=== PATIENT | male | born 1980 | race Caucasian/White ===

== ENCOUNTER 2018-07-26 23:11 | Emergency (ER) | payer OTHER, SELFPAY ==
[2018-07-26 23:21] VITALS: BP 144/96; PULSE 65; RESP 14; TEMP 36.4; O2SAT 98; BMI 35.5
--- NOTE | 2018-07-26 23:42 | DI.CT.S_ITS ---
PROCEDURE: CT ABDOMEN PELVIS W CON INDICATIONS: rlq pain TECHNIQUE: After the administration of oral and intravenous contrast, 5 mm thick sections acquired from the diaphragms to the symphysis. 5 mm thick coronal and sagittal reformats were performed. For radiation dose reduction, the following was used: automated exposure control, adjustment of mA and/or kV according to patient size. COMPARISON: None. FINDINGS: Image quality: Excellent. ABDOMEN: Lung bases: Lung bases are clear. Heart size is normal. Solid organs: Liver is normal in size and enhancement. Gallbladder is contracted, but within normal limits. Biliary system is non-dilated. Pancreas enhances normally. Spleen is normal in size and enhancement. No adrenal nodules. Kidneys are normal in size and enhancement, without hydronephrosis. 2 mm nonobstructing right renal stone. Peritoneum and bowel: Stomach, small bowel, and colon loops are normal in caliber and wall thickness. Scattered colonic diverticuli without evidence of diverticulitis. No free fluid or air. The appendix is normal. Nodes and vessels: No retroperitoneal or mesenteric adenopathy. Aorta and inferior vena cava are normal in caliber. Miscellaneous: No ventral hernias. PELVIS: Genitourinary: Bladder wall thickness is normal. Miscellaneous: No inguinal adenopathy. Small bilateral fat containing inguinal hernias. Bones: No suspicious bony lesions. No vertebral body compression fractures. Spine degenerative disc disease and facet arthropathy. IMPRESSION: 1. No evidence of appendicitis. 2. Nonobstructing right renal stone. 3. No free fluid or free air. 4. No dilated loops of bowel 5. Colonic diverticulosis without evidence of diverticulitis. Dictated by: Rosanne Grove MD, PhD on 07/27/2018 at 8:13 Approved by: Rosanne Grove MD, PhD on 07/27/2018 at 8:16
[2018-07-26 23:43] LABS: Add Manual Diff / Slide Review YES; Hematocrit 44.1 % (41-53); Hemoglobin 15.8 g/dL (13.5-17.5); Mean Corpuscular HGB Conc 35.8 % (30-36); Mean Corpuscular Volume 89.4 fL (80-100); Platelet Count 156 X10^3/uL (150-400); Red Blood Cell Count 4.93 X10^6/uL (4.5-5.9); Red Cell Distribution Width 12.8 % (11.6-14.8); White Blood Cell Count 7.8 X10^3/uL (4.5-11.0)
[2018-07-26 23:45] LABS: Prothrombin Time 11.3 SECONDS (10.1-12.7)
--- NOTE | 2018-07-26 23:46 | ED.ABDPAIN ---
HPI - Abdominal Pain General Chief Complaint: Abdominal Pain Stated Complaint: rlq abd pain x7 days Time Seen by Provider: 07/26/18 23:30 Source: patient, family and old records reviewed Limitations: no limitations History of Present Illness HPI narrative: Patient is a 38-year-old male presenting with worsening right lower quadrant pain. He was seen evaluated [facility] twice. He had actually started with nausea vomiting diarrhea like symptoms. Other people had the same symptoms initially he was given anti nausea medication and pain medication discharge home. Return to would be again where he had blood work and a CT. The appendix was not identified on this CT there was punctate nonobstructing right renal calculus. Patient has continued to have pain it remains in his right lower quadrant radiating to his right testicle. No flank pain no blood in his urine. He did feel nauseated prior to arrival and took a Zofran. Related Data Home Medications Medication Instructions Recorded Confirmed albuterol sulfate [Ventolin HFA] 1 puff INH #0 ea 02/13/16 fluticasone propion-salmeterol 1 puff BID #0 02/13/16 [Advair Diskus] loratadine [Claritin Liqui-Gel] 10 mg PO QDAYP PRN #0 sgl 02/13/16 montelukast [Singulair] 10 mg PO QDAY #0 02/13/16 Allergies Allergy/AdvReac Type Severity Reaction Status Date / Time No Known Drug Allergies Allergy Verified 07/26/18 23:20 Review of Systems Review of Systems GENERAL: Denies chills, fatigue, malaise, fever, sweats, travel HEENT: Denies sinus pain, ear pain, sore throat, difficulty swallowing, neck pain RESPIRATORY: Denies dyspnea, cough, wheezing, hemoptysis, sputum. CARDIOVASCULAR: Denies chest pain, palpitations, orthopnea, edema GASTROINTESTINAL see HPI : Denies any testicular injury or trauma note is ocular pain or swelling no blood in urine MUSCULOSKELETAL: Denies weakness, joint pain, or bony pain SKIN: No rash, no erythema, no pruritus NEUROLOGIC: Denies weakness, dizziness, headache, numbness, change in speech, confusion PSYCHIATRIC: No concerning psychosocial issues. 12 point review of systems is negative except for those stated above and HPI [facility] Medical History Patient denies significant medical history (Acute) Social History Smoking Status: Unknown if ever smoked Social History Smoking Status: Unknown if ever smoked Exam Initial Vital Signs Initial Vital Signs: Vital Signs Temperature 97.6 F 07/26/18 23:21 Pulse Rate 65 07/26/18 23:21 Respiratory Rate 14 07/26/18 23:21 Blood Pressure 144/96 H 07/26/18 23:21 Pulse Oximetry 98 07/26/18 23:21 GENERAL: Alert young male appears in pain HEENT: Head atraumatic,EOMI, pupils reactive, face symmetric CARDIOVASCULAR: Regular rate and rhythm without murmurs, rubs or gallops. RESPIRATORY: Breath sounds equal bilaterally, no wheezes rales or rhonchi. ABDOMEN: Soft, tender right lower quadrant no guarding no rebound no right upper quadrant : No testicular swelling no pain no erythema and no hernia present bilaterally in room for exam EXTREMITIES: Normal range of motion, no clubbing or edema. Neurovascularly intact NEUROLOGICAL: Alert and oriented x4.Normal gait and speech. Cranial nerves II through XII grossly intact. SKIN: Warm, dry, no laceration, no petechiae, no rashes or lesions. Course Orders Ordered: ED Orders 07/26/18 23:25 Complete Blood Count AUTO DIFF Stat Comprehensive Metabolic Panel Stat Lipase Stat Partial Thromboplastin Time Stat Prothrombin Time INR Stat 07/26/18 23:42 CT abdomen pelvis w con Stat Discontinued Medications Sodium Chloride (Normal Saline 0.9%) 1,000 mls @ 1,000 mls/hr IV BOLUS ONE Stop: 07/27/18 00:41 Last Infusion: 07/27/18 00:50 Dose: 0 mls/hr Admin: 07/26/18 23:47 Dose: 1,000 mls/hr Ketorolac Tromethamine (Toradol) 30 mg IV NOW ONE Stop: 07/26/18 23:43 Last Admin: 07/26/18 23:47 Dose: 30 mg Consultations Consultation #1: Dr. victoria, surgery consulted in regards to patient's symptoms and CT results. At this time no indication for surgery. Likely kidney stone. Recommend supportive care. Time: 02:10 Vital Signs - 8 hr 07/26/18 23:21 07/27/18 02:06 Temperature 97.6 F Pulse Rate 65 60 Respiratory Rate 14 18 Blood Pressure 144/96 H Blood Pressure [Left Arm] 125/76 Pulse Oximetry 98 99 MDM - Abdominal Pain Lab Data Attestation: I reviewed the patient's lab results. Result diagrams: 07/26/18 23:25 07/26/18 23:25 Lab Results 07/26/18 07/26/18 07/26/18 Range/Units 23:25 23:25 23:25 WBC 7.8 (4.5-11.0) X10^3/uL RBC 4.93 (4.5-5.9) X10^6/uL Hgb 15.8 (13.5-17.5) g/dL Hct 44.1 (41-53) % MCV 89.4 (80-100) fL MCH 32.0 (26-34) PG MCHC 35.8 (30-36) % RDW 12.8 (11.6-14.8) % Plt Count 156 (150-400) X10^3/uL Neut % (Auto) Not Reportable Lymph % (Auto) Not Reportable [place] % (Auto) Not Reportable Eos % (Auto) Not Reportable Baso % (Auto) Not Reportable Lymph # (Auto) Not Reportable [place] # (Auto) Not Reportable Baso # (Auto) Not Reportable Seg Neutrophils % 37.0 L (38-70) % Lymphocytes % (Manual) 23.0 L (25-45) % Atypical Lymphs % 15.0 H ( - 0) % Monocytes % (Manual) 4.0 (2-11) % Eosinophils % (Manual) 20.0 H (2-4) % Basophils % (Manual) 1.0 (0-1) % RBC Morphology Normal morphology PT 11.3 (10.1-12.7) SECONDS INR 1.0 (0.9-1.3) APTT 30 (26.4-36.2) SECONDS Sodium 140 (137-145) mmol/L Potassium 4.0 (3.4-5.1) mmol/L Chloride 104 (98-107) mmol/L Carbon Dioxide 26 (22-32) mmol/L BUN 18 (9-20) mg/dL Creatinine 1.30 H (0.66-1.25) mg/dL Estimated GFR > 60.0 (>60) mL/min BUN/Creatinine Ratio 13.8 (6-22) Glucose 89 (70-100) mg/dL Calcium 10.0 (8.4-10.2) mg/dL Total Bilirubin 0.7 (0.2-1.3) mg/dL AST 32 (17-59) IU/L ALT 49 (21-72) IU/L Alkaline Phosphatase 34 L (38-126) U/L Total Protein 7.4 (6.3-8.2) g/dL Albumin 4.8 (3.5-5.0) g/dL Globulin 2.6 (1.7-4.1) g/dL Albumin/Globulin Ratio 1.8 (1.0-2.8) Lipase 176 (23-300) U/L Point of care testing: Urine Dip Bedside Urine Glucose Negative Bedside Urine Bilirubin - Negative Bedside Urine Ketone - Negative Urine Specific [place] 1.015 Bedside Urine Occult Blood - Negative Bedside Urine pH 5.0 Bedside Urine Protein +/- 15 Bedside Urine Urobilinogen - Negative Bedside Urine Nitrite - Negative Bedside Urine Leukocytes - Negative Esterase Imaging Data CT scan - abdomen: 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 Appendix is not definitely identified cecum is somewhat high in the right abdomen. Please correlate with surgical history. Small nonobstructing right kidney stone noted without hydronephrosis. Pancreas adrenal glands and left kidney within normal limits. [facility] Narrative Medical decision making narrative: The patient is tender in his right lower quadrant. Kidney stone is noted on CT from this evening and the 1 from 2 days ago at [facility]. It is punctate and small not even measured on the CT. He has pain radiating from his lower abdomen into his testicle. Testicle exam is benign. At this time I do not believe him to need any further imaging of his testicles I do not suspect torsion. He has no hematuria or flank pain. he states every time he eats or drinks anything he gets extremely nauseous. According to records he does have a history of acid reflux is on Carafate and omeprazole. With his history of a gastroenteritis week or 2 ago and continued upset stomach this is likely contributing to his pain and nausea. This time Toradol has helped him immensely he is overall feeling better. He has no fever no leukocytosis. This patient is not a surgical candidate at this time. I believe his pain to be caused from a small kidney stone and ongoing gastroenteritis. I discussed all findings with the patient and spouse, Education has been performed regarding treatment plan, diagnosis, warning signs and symptoms and all concerns have been addressed. Verbally agree with and understood all of the above. Discharge Plan Departure Patient Disposition: Home Clinical Impression: Calculus of kidney Discharge Date/Time: 07/27/18 02:22 Interventions: ED Discharge Assessment Last Done: 07/27/18 02:21 Instructions: Kidney Stones -- Adult, DI for Viral Gastroenteritis -- Adult Activity Restrictions/Additional Instructions: *You have been diagnosed with kidney stone *What to do: At this time I think her pain is likely caused from kidney stone there is a small kidney stone noted in both today's CAT scan and 1 at [facility]. I suspect it should pass. You also likely have gastroenteritis which is a viral syndrome causing the vomiting and diarrhea. Increase fluids as tolerated. At this time blood work is reassuring *Continue to take medications as directed Motrin 800 mg every 8 hours for [id number] pain. I recommend this for the next 24-48 hours [place] as previously prescribed *Follow up with your primary care provider in 2-3 days *Return to ER if you should have worsening pain, fever, inability to tolerate fluids or any new, worsening or concerning symptoms Prescriptions: No Action montelukast [Singulair] 10 MG tablet 10 mg PO QDAY Qty: 0 RF: 0 fluticasone propion-salmeterol [Advair Diskus] 100 MCG/50 MCG blister with device 1 puff BID Qty: 0 RF: 0 albuterol sulfate [Ventolin HFA] 90 MCG/PUFF HFA aerosol inhaler 1 puff INH Qty: 0 RF: 0 loratadine [Claritin Liqui-Gel] 10 MG capsule 10 mg PO QDAYP PRNQty: 0 RF: 0
[2018-07-26 23:47] LABS: PTT Partial Thromboplastin Tim 30 SECONDS (26.4-36.2)
[2018-07-26] MEDS: SODIUM CHLORIDE 0.9% 1,000 ML 1000 ML IV (23:47)
[2018-07-26] MEDS: KETOROLAC 60 MG/2 ML VIAL 30 MG IV (23:47)
[2018-07-26 23:48] LABS: Alanine Aminotransferase 49 IU/L (21-72); Albumin 4.8 g/dL (3.5-5.0); Albumin Globulin Ratio 1.8 (1.0-2.8); Alkaline Phosphatase 34 U/L (38-126); Aspartate Aminotransferase 32 IU/L (17-59); BUN Creatinine Ratio 13.8 (6-22); Bilirubin Total 0.7 mg/dL (0.2-1.3); Blood Urea Nitrogen 18 mg/dL (9-20); Carbon Dioxide 26 mmol/L (22-32); Chloride 104 mmol/L (98-107); Estimated Glomerular Filt Rate > 60.0 mL/min (>60); Globulin 2.6 g/dL (1.7-4.1); Glucose 89 mg/dL (70-100); HEMOLYSIS < 15 (0-50); Lipase 176 U/L (23-300); Sodium 140 mmol/L (137-145); Total Protein 7.4 g/dL (6.3-8.2)
[2018-07-27 00:30] LABS: RBC Morphology Normal Morphology
[2018-07-27 02:06] VITALS: BP 125/76; PULSE 60; RESP 18; O2SAT 99
== END 2018-07-27 02:22 | disposition home or self-care (01) ==
PROVIDERS: Emergency Provider Emergency Medicine
DX: N20.0 Calculus of kidney (principal)
CPT/HCPCS: 36591; 74177; 80053; 81003; 83690; 85025; 85610; 85730; 96361; 96374; 99283; 99285; J1885; Q9967

== ENCOUNTER → 2019-05-16 14:54 | Outpatient (CLI) | payer OTHER, SELFPAY ==
--- NOTE | 2019-05-16 | DI.MRI.S_ITS ---
PROCEDURE: MR KNEE RT WO CON INDICATIONS: PAIN IN RIGHT KNEE TECHNIQUE: Noncontrast sagittal PD fast spin echo and T2 fast spin echo with fat saturation, sagittal 3-D FLASH with fat saturation; coronal T1 spin echo and PD fast spin echo with fat saturation, and axial PD fast spin echo with fat saturation through the knee. COMPARISON: None. FINDINGS: Image quality: Excellent. Menisci: The medial and lateral menisci demonstrate normal morphology and internal signal. The meniscal root ligaments appear intact. Cruciate ligaments: The anterior and posterior cruciate ligaments appear intact. Medial structures: The medial collateral ligament appears intact. Visualized portions of the pes anserinus tendons appear normal. Small amount of medial bursal fluid. Lateral structures: The lateral collateral ligament, long and short heads of the biceps femoris tendon appear intact. The popliteus tendon appears normal. Iliotibial band appears normal. Anterior structures: The quadriceps and patellar tendons appear intact. Patellar alignment is normal. No femoral trochlear dysplasia or ventral trochlear prominence. No edema in the infrapatellar fat pad. Bones and cartilage: No bone marrow contusions or fractures. The mild tricompartmental periarticular osteophyte formation is present. Mild diffuse articular cartilage loss overlies the weightbearing aspects of the medial femoral condyle and medial tibial plateau. There is a small focal pinhole articular cartilage defect overlying the medial patellar facet measuring roughly 1-2 mm. There is a high-grade region of articular cartilage loss overlying the patellar apex measuring 6 mm. Moderate grade focus of delamination involves the lateral patellar facet articular cartilage loss. Joint space: There is a small knee joint effusion and trace Myers's cyst. Normal appearing synovial plicae are incidentally noted. IMPRESSION: 1. Tricompartmental osteoarthritis with associated articular cartilage loss. 2. No internal derangement. 3. Small knee joint effusion and trace Myers's cyst. 4. Mild medial bursitis. Dictated by: Faisal Perdomo M.D. on 05/16/2019 at 16:03 Approved by: Faisal Perdomo M.D. on 05/16/2019 at 16:06
== END ==
PROVIDERS: Visit Provider Family Medicine
DX: M25.561 Pain in right knee (principal); M17.11 Unilateral primary osteoarthritis, right knee; M71.561 Other bursitis, not elsewhere classified, right knee; M25.461 Effusion, right knee
CPT/HCPCS: 73721